=== PATIENT | female | born 2000 | race Caucasian/White ===

== ENCOUNTER 2022-08-03 14:57 | Emergency (ER) | payer OTHER ==
[~2022-08-03 14:57] MED LIST: BENTYL 20MG TAB20 MG PO; ZOFRAN ODT 4 MG4 MG PO
[2022-08-03 18:30] LABS: HEMOGLOBIN 14.1 gm/dl (12.3-15.3); RED BLOOD COUNT 4.73 M/UL (4.00-5.10); WHITE BLOOD COUNT 10.8 K/UL (4.5-11.0)
[2022-08-03 18:43] LABS: BUN/CREATININE RATIO 12 (0-10)
[2022-08-03] MEDS ORDERED: CYCLOBENZAPRINE10 MG PO (19:19)
[2022-08-03] MEDS ORDERED: IBUPROFEN800 MG PO (19:19)
== END 2022-08-03 19:32 | disposition home or self-care (01) ==
LOC: ER1 14:57
PROVIDERS: Preventive Medicine Occupational Medicine
DX: G44.209 Tension-type headache, unspecified, not intractable (principal)
CPT/HCPCS: 70450; 80053; 85025; 85652; 86140; 99284